=== PATIENT | female | born 1975 | race Caucasian/White ===

== ENCOUNTER → 2017-07-14 | Outpatient (CLI) | payer OTHER ==
[~2017-07-14] MED LIST: MULT-506 PO
--- NOTE | 2017-07-15 12:37 | MAMMOGRAPHY REPORT ---
BILATERAL DIGITAL SCREENING MAMMOGRAM TOMOSYNTHESIS WITH CAD: 07/14/2017 CLINICAL HISTORY: Asymptomatic. Personal history of breast cancer. TECHNIQUE: Breast tomosynthesis in addition to standard 2D mammography was performed. Current study was also evaluated with a Computer Aided Detection (CAD) system. COMPARISON: Comparison is made to exams dated: 07/13/2016 mammogram, 01/08/2016 mammogram, 07/10/2015 m ammogram, 02/19/2015 ultrasound, and 02/19/2015 mammogram - [facility]. BREAST COMPOSITION: There are scattered areas of fibroglandular density in both breasts. FINDINGS: There is expected architectural distortion in the upper outer posterior left breast, at th e site of prior lumpectomy. No new suspicious mass, architectural distortion or cluster of microcalc ifications is seen bilaterally. IMPRESSION: ACR BI-RADS CATEGORY 1: NEGATIVE Stable postsurgical changes in the left breast. No mammographic evidence of malignancy bilaterally. A 1 year screening mammogram is recommended. The patient will receive written notification of the re sults. Approximately 10% of breast cancers are not detected with mammography. A negative mammographic report should not delay biopsy if a clinically suggestive mass is present. Maggi Lala M.D. ay/:07/14/2017 15:32:41 Supervisor [employer]: Tamara CRUZ)(M), [facility] letter sent: Normal 1/2 BI-RADS Code: ACR BI-RADS Category 1: Negative
== END | disposition home or self-care (01) ==
LOC: C.MAMM 15:06
PROVIDERS: ATTEND Surgery
DX: Z12.31 Encounter for screening mammogram for malignant neoplasm of breast (principal); Z85.3 Personal history of malignant neoplasm of breast

== ENCOUNTER → 2017-07-28 | Outpatient (CLI) | payer OTHER ==
[2017-07-28 09:42] LABS: CHOLESTEROL/HDL RATIO 2.3
== END ==
LOC: C.LABSPEC 10:03
PROVIDERS: ATTEND Student in an Organized Health Care Education/Training Program
DX: Z00.00 Encounter for general adult medical examination without abnormal findings (principal)

== ENCOUNTER → 2018-06-10 | Outpatient (CLI) | payer OTHER ==
[2018-06-10 18:21] LABS: FOLLICLE STIMULAT HORMONE 27.79 IU/L; PROLACTIN 20.84 ng/mL
== END | disposition home or self-care (01) ==
LOC: C.LAB1850 16:45
PROVIDERS: ATTEND Obstetrics & Gynecology
DX: N92.6 Irregular menstruation, unspecified (principal)